=== PATIENT | male | born 1990 | race Caucasian/White ===

== ENCOUNTER 2018-11-17 17:03 | Emergency (ER) | payer BC ==
[~2018-11-17] VITALS: Ht 180.3 cm; Wt 60.3 kg
[2018-11-17 17:17] VITALS: Ht 180.3 cm; Wt 60.3 kg
[2018-11-17 19:39] VITALS: BP 110/89
== END 2018-11-17 19:39 | disposition home or self-care (01) ==
LOC: ED 17:03
DX: J03.90 Acute tonsillitis, unspecified (principal)